=== PATIENT | female | born 1965 | race Caucasian/White ===

== ENCOUNTER 2017-01-01 20:18 | Inpatient (IN) | payer MEDICARE ==
[2017-01-01] MEDS ORDERED: NORMAL SALINE 1000 ML 1,000 ML IV ONE (20:25)
[2017-01-01] MEDS ORDERED: ONDANSETRON HCL INJ/PF 4 MG/2 ML SDV ONE ×4 (20:27→23:50)
[2017-01-01] MEDS ORDERED: NALOXONE HCL INJ/PF 0.4 MG/1 ML SDV ONE ×6 (20:27→22:14)
--- NOTE | 2017-01-01 20:47 | ER Document Report ---
ED General - General Chief Complaint: Possible Overdose Stated Complaint: ABDOMINAL PAIN/VOMITING Time Seen by Provider: 01/01/17 20:24 Cannot obtain history due to: Altered mental status Notes: Patient is a 51-year-old female visiting from [place] who presents after having decreased mental status for the past 12-24 hours. History is extremely limited as patient is somnolent and unstable at time of assessment. The relates that patient normally takes up to 300 mg of tramadol daily and took a her normal dose this morning. He states during the ride she seemed somewhat tired but was able to get out during stops without difficulty. However, shortly after arriving to the family's house here in [facility] the patient had difficulty getting into the house and appeared extremely tired. She slept in a recliner for the majority of the day and family became increasingly concerned when she was not improving. This subsequently brought her here to the emergency department for further assessment. No history of similar symptoms in the past. Patient does have a history of chronic back pain, hypertension, CHF. She does require oxygen at baseline secondary COPD. Denies any history of similar symptoms in the past and denies any concern for illicit substance abuse. - Related Data Allergies/Adverse Reactions: promethazine [From Phenergan] Allergy (Verified 01/01/17 23:00) Home Medications: Current Home Medications Atorvastatin Calcium 1 tab PO QHS 01/01/17 [History] Baclofen [Baclofen 20 Mg Tablet] 1 tab PO TID 01/01/17 [History] Bumetanide 1 tab PO BID 01/01/17 [History] Clopidogrel Bisulfate [Clopidogrel] 1 tab PO DAILY 01/01/17 [History] Escitalopram Oxalate [Escitalopram Oxalate] 1 tab PO DAILY 01/01/17 [History] Fenofibrate [Fenofibrate] 1 tab PO DAILY 01/01/17 [History] Metformin HCl 1 tab PO BID 01/01/17 [History] Metoprolol Tartrate [Metoprolol Tartrate] 1 tab PO DAILY 01/01/17 [History] Oxybutynin Chloride [Oxybutynin Chloride] 1 tab PO BID 01/01/17 [History] Ranitidine HCl [Ranitidine HCl] 1 tab PO BID 01/01/17 [History] Sennosides/Docusate Sodium [Docusate Sodium-Senna Tablet] 1 each PO DAILY [History] Tramadol HCl 2 tab PO QID 01/01/17 [History] Warfarin Sodium [Warfarin Sodium] 1 tab PO DAILY 01/01/17 [History] Past Medical History - General Information source: Relative Cannot obtain history due to: Intoxicated, Altered mental status - Social History Smoking Status: Unknown if Ever Smoked Lives with: Family Family History: Reviewed & Not Pertinent Review of Systems - Review of Systems -: Yes ROS unobtainable due to patient's medical condition Physical Exam - Vital signs Vitals: Pulse Ox 89 L 01/01/17 20:26 Interpretation: Hypotensive, Hypoxic Notes: PHYSICAL EXAMINATION: GENERAL: Somnolent, unable to participate in history taking. Requires sternal rub to open eyes. HEAD: Atraumatic, normocephalic. EYES: Pupils are pinpoint but reactive, extraocular movements intact, sclera anicteric, conjunctiva are normal. ENT: nares patent, oropharynx clear without exudates. Moderately dry mucous membranes. NECK: supple without lymphadenopathy LUNGS: Sonorous respirations. Hypoventilation. HEART: Regular rate and rhythm without murmurs ABDOMEN: Soft, nontender, normoactive bowel sounds. No guarding, no rebound. No masses appreciated. EXTREMITIES: no pitting or edema. No cyanosis. NEUROLOGICAL: No focal neurologic deficits. Patient does move all extremities spontaneously. After administration of naloxone she does follow commands in all 4 extremities. PSYCH: Stuporous SKIN: Warm, Dry, normal turgor, no rashes or lesions noted. Course - Re-evaluation Re-evalutation: 01/01/17 20:43 Patient presented obtunded, not protecting her airway, hypotensive and hypoxemic. She had to be pulled from her car by emergency department staff. Immediately upon patient arriving to the emergency department I went to assess her. Her pupils were noted to be pinpoint, she had sonorous respirations, and she was hypotensive. 0.4 mg of naloxone was administered slowly with gradual improvement of the patient's mental status. Her hypertension began to improve at the bedside after administration of the lung zone as well as a 500 cc fluid bolus. I spent extensive time at the bedside with the patient and her family trying to ascertain what exactly she may have taken today as patient is only prescribed tramadol and only took it this morning almost 12 hours ago which would not account for her presentation at this time. Patient shortly after receiving initial dose of 0.4 mg of naloxone again became more somnolent and was again administered an additional 0.4 mg of naloxone again returning to normal mental status. Laboratories will be sent at this time. If patient requires additional doses of naloxone she will require naloxone drip and admission to the ICU. The patient herself still is somewhat altered at this time and unable to clarify for me exactly what she took today. Her medication bottles were reviewed at the bedside and the only sedating medications include tramadol, baclofen. Patient is critically ill at this time due to her potential impending airway compromise and will require frequent reassessments. 01/01/17 21:37 Patient is again obtunded, sonorous respirations. She has again required a re- dose of naloxone at 0.4 mg. She will be started on a naloxone drip at 1 mg/h. She will require admission to the ICU. 01/02/17 02:31 Patient has maintained normal oxygen saturations and blood pressure on continuous naloxone drip. She has been admitted to Dr. Monsalve. - Vital Signs Vital signs: Temp Pulse Resp BP Pulse Ox 98.0 F 17 110/54 L 94 01/02/17 00:35 01/02/17 00:41 01/02/17 00:41 01/02/17 00:41 - Laboratory Result Diagrams: 01/01/17 20:34 01/01/17 20:34 Laboratory results interpreted by me: 01/01/17 01/01/17 01/01/17 20:32 20:34 20:34 MCHC 31.9 L RDW 16.0 H Seg Neutrophils % 80.4 H Carbon Dioxide 21 L BUN 31 H Creatinine 2.38 H Est GFR ( Amer) 26 L Est GFR (Non-Af Amer) 21 L Glucose 175 H POC Glucose 174 H Calcium 10.4 H Direct Bilirubin 0.7 H AST 55 H Creatine Kinase Total Protein 9.0 H Salicylates < 1.0 L Acetaminophen < 10 L 01/01/17 20:34 MCHC RDW Seg Neutrophils % Carbon Dioxide BUN Creatinine Est GFR ( Amer) Est GFR (Non-Af Amer) Glucose POC Glucose Calcium Direct Bilirubin AST Creatine Kinase 141 H Total Protein Salicylates Acetaminophen - Diagnostic Test Radiology reviewed: Image reviewed, Reports reviewed Radiology results interpreted by me: 01/02/17 02:31 CT head: No acute intracranial bleed - EKG Interpretation by Me Additional EKG results interpreted by me: 01/02/17 02:32 Sinus rhythm. Rate 64. No ST elevations or depressions. LVH. QTC is 458 Critical Care Note - Critical Care Note Total time excluding time spent on procedures (mins): 40 Comments: Critical care time spent obtaining history from patient or surrogate, discussions with consultants, development of treatment plan with patient or surrogate, evaluation of patient's response to treatment, examination of patient , ordering and performing treatments and interventions, ordering and review of laboratory studies, re-evaluation of patient's condition, ordering and review of radiographic studies and review of old charts Discharge - Discharge Clinical Impression: Acute kidney injury Narcotic overdose Qualifiers: Encounter type: initial encounter Injury intent: accidental or unintentional Qualified Code(s): T40.601A - Poisoning by unspecified narcotics, accidental ( unintentional), initial encounter Mental status alteration Qualifiers: Altered mental status type: somnolence Qualified Code(s): R40.0 - Somnolence Hypotension Qualifiers: Hypotension type: unspecified hypotension type Qualified Code(s): I95.9 - Hypotension, unspecified Condition: Critical Disposition: ADMITTED INPATIENT Admitting Provider: [place] [facility] Unit Admitted: ICU
[2017-01-01 20:51] LABS: ABSOLUTE LYMPHOCYTES (AUTO) 1.3 10^3/uL (0.5-4.7); ABSOLUTE MONOCYTES (AUTO) 0.6 10^3/uL (0.1-1.4); BASOPHILS % (AUTO) 0.2 % (0-2); EOSINOPHILS % (AUTO) 0.3 % (0-6); HEMATOCRIT 42.9 % (36.0-47.0); HEMOGLOBIN 13.7 g/dL (12.0-15.5); HGB HCT DIFFERENCE -1.8; LYMPHOCYTES % (AUTO) 13.3 % (13-45); MEAN CORPUSCULAR HEMOGLOBIN 27.5 pg (27.0-33.4); MEAN CORPUSCULAR HGB CONC 31.9 g/dL (32.0-36.0); MEAN CORPUSCULAR VOLUME 86 fl (80-97); MONOCYTES % (AUTO) 5.8 % (3-13); RED BLOOD COUNT 4.98 10^6/uL (3.72-5.28); SEGMENTED NEUTROPHILS % (AUTO) 80.4 % (42-78)
[2017-01-01 21:06] LABS: ALANINE AMINOTRANSFERASE 49 U/L (9-52); ALCOHOL < 10 mg/dL (NONE DETECTED); ALKALINE PHOSPHATASE 71 U/L (38-126); ANION GAP 18 (5-19); ASPARTATE AMINO TRANSFERASE 55 U/L (14-36); BILIRUBIN,DIRECT 0.7 mg/dL (0.0-0.4); BILIRUBIN,TOTAL 1.1 mg/dL (0.2-1.3); BLOOD UREA NITROGEN 31 mg/dL (7-20); CALCIUM 10.4 mg/dL (8.4-10.2); CARBON DIOXIDE 21 mmol/L (22-30); CHLORIDE 102 mmol/L (98-107); CREATININE RESULT 2.38 mg/dL (0.52-1.25); GLUCOSE 175 mg/dL (75-110); SODIUM 141.4 mmol/L (137-145)
[2017-01-01] MEDS ORDERED: NORMAL SALINE 500 ML with NALOXONE HCL 2 MG IV PRN ×2 (21:36)
--- NOTE | 2017-01-01 21:38 | RADIOLOGY REPORT (SQ) ---
EXAM DESCRIPTION: CT HEAD WITHOUT COMPLETED DATE/TIME: 01/01/2017 9:27 pm REASON FOR STUDY: ams COMPARISON: None. TECHNIQUE: Axial images acquired through the brain without intravenous contrast. Images reviewed wi th bone, brain and subdural windows. Images stored on PACS. All CT scanners at this facility use dose modulation, iterative reconstruction, and/or weight based d osing when appropriate to reduce radiation dose to as low as reasonably achievable (ALARA). [facility]: Dose Right [facility]: CareDose [facility]: Dose Right [facility]: Teradose 4D [facility]: [employer] RADIATION DOSE: 64.61 mGy. LIMITATIONS: None. FINDINGS: VENTRICLES: Prominent. CEREBRUM: No masses. No hemorrhage. No midline shift. Areas of low density in the white matter mos t likely due to chronic micro-vascular ischemic change. No evidence for acute infarction. CEREBELLUM: No masses. No hemorrhage. No alteration of density. No evidence for acute infarction. EXTRAAXIAL SPACES: Mild age-related involutional change. No fluid collections. No masses. ORBITS AND GLOBE: No intra- or extraconal masses. Normal contour of globe without masses. CALVARIUM: No fracture. PARANASAL SINUSES: No fluid or mucosal thickening. SOFT TISSUES: No mass or hematoma. OTHER: Intracranial atherosclerosis. IMPRESSION: MILD CHRONIC CHANGES OF ATROPHY AND MICROVASCULAR ISCHEMIA ALONG WITH INTRACRANIAL ATHER OSCLEROSIS. NO ACUTE PROCESS. TECHNICAL DOCUMENTATION: JOB ID: [id number] Quality ID # [id number]: Final reports with documentation of one or more dose reduction techniques (e.g., Au tomated exposure control, adjustment of the mA and/or kV according to patient size, use of iterative reconstruction technique) 2010 [employer]- All Rights Reserved
[2017-01-01] MEDS ORDERED: MAG HYDROX/AL HYDROX/SIMETH SUSP 30 ML UDCUP PO PRN (22:05)
[2017-01-01] MEDS ORDERED: NORMAL SALINE 1000 ML 500 ML IV ONE (22:10)
[2017-01-01 22:46] LABS: CREATINE KINASE MB 2.46 ng/mL (<4.55)
[2017-01-01 22:47] LABS: TROPONIN I < 0.012 ng/mL
[2017-01-01] MEDS ORDERED: NALOXONE HCL INJ 2 MG/2 ML DISP.SYRIN ONE (23:52)
[2017-01-01] MEDS: NORMAL SALINE 500 ML with NALOXONE HCL 2 MG IV PRN ×2 (23:58)
[2017-01-02 00:17] LABS: APPEARANCE,URINE SLIGHTLY-CLOUDY; BILIRUBIN,URINE NEGATIVE (NEGATIVE); GLUCOSE, URINE NEGATIVE (NEGATIVE); KETONES,URINE NEGATIVE (NEGATIVE); LEUKOCYTE ESTERASE,URINE NEGATIVE (NEGATIVE); NITRITE,URINE NEGATIVE (NEGATIVE); PROTEIN,URINE 30 mg/dL (NEGATIVE); URINE SPECIFIC GRAVITY 1.015; UROBILINOGEN,URINE NEGATIVE mg/dL (<2.0)
[2017-01-02 00:25] LABS: URINE BARBITURATES SCREEN NEGATIVE; URINE METHADONE SCREEN NEGATIVE; URINE OPIATES LOW NEGATIVE; URINE PHENCYCLIDINE SCREEN NEGATIVE
[2017-01-02] MEDS ORDERED: NALOXONE HCL INJ 2 MG/2 ML DISP.SYRIN ONE ×3 (02:10→04:38)
[2017-01-02] MEDS: NORMAL SALINE 500 ML with NALOXONE HCL 2 MG IV PRN ×2 (02:15)
[2017-01-02] MEDS: IPRATROPIUM/ALBUTEROL 0.5-2.5 MG/3 ML AMPUL NEB SCH ×4 (02:28→19:43)
[2017-01-02 02:33] LABS: ABSOLUTE LYMPHOCYTES (AUTO) 0.7 10^3/uL (0.5-4.7); ABSOLUTE MONOCYTES (AUTO) 0.4 10^3/uL (0.1-1.4); ABSOLUTE NEUT (AUTO) 8.6 10^3/uL (1.7-8.2); BASOPHILS % (AUTO) 0.1 % (0-2); HEMATOCRIT 35.8 % (36.0-47.0); HEMOGLOBIN 11.7 g/dL (12.0-15.5); HGB HCT DIFFERENCE -0.7; MEAN CORPUSCULAR HGB CONC 32.7 g/dL (32.0-36.0); MEAN CORPUSCULAR VOLUME 86 fl (80-97); MONOCYTES % (AUTO) 4.6 % (3-13); RED BLOOD COUNT 4.18 10^6/uL (3.72-5.28); RED CELL DISTRIBUTION WIDTH 15.6 % (11.5-14.0); SEGMENTED NEUTROPHILS % (AUTO) 88.3 % (42-78); WHITE BLOOD COUNT 9.7 10^3/uL (4.0-10.5)
[2017-01-02 02:58] LABS: ALANINE AMINOTRANSFERASE 46 U/L (9-52); ALBUMIN 3.8 g/dL (3.5-5.0); ALKALINE PHOSPHATASE 53 U/L (38-126); ANION GAP 10 (5-19); ASPARTATE AMINO TRANSFERASE 37 U/L (14-36); BILIRUBIN,DIRECT 0.5 mg/dL (0.0-0.4); BILIRUBIN,TOTAL 0.8 mg/dL (0.2-1.3); BLOOD UREA NITROGEN 29 mg/dL (7-20); CALCIUM 8.8 mg/dL (8.4-10.2); CARBON DIOXIDE 21 mmol/L (22-30); CHLORIDE 110 mmol/L (98-107); CREATINE KINASE 139 U/L (30-135); CREATININE RESULT 1.53 mg/dL (0.52-1.25); GLUCOSE 137 mg/dL (75-110); POTASSIUM 4.9 mmol/L (3.6-5.0); SODIUM 141.2 mmol/L (137-145)
[2017-01-02 03:08] LABS: CREATINE KINASE MB 3.43 ng/mL (<4.55)
[2017-01-02 03:11] LABS: TROPONIN I < 0.012 ng/mL
--- NOTE | 2017-01-02 03:47 | PDOC H&P ---
History of Present Illness Admission Date/PCP: 01/01/17 22:05 Patient complains of: Altered mental status History of Present Illness: XOCHILT SURESH is a 51 year old female with a past medical history of COPD, chronic kidney disease, coronary artery disease, diabetes, hypertension, chronic anticoagulation and chronic pain. She is accompanied by her and sister who provide history. Patient was driven by her from [place] to [place] to visit family and route she became somnolent though managed to ambulate into the house upon arrival to [place]. She has otherwise been persistently somnolent and difficult to arouse and after approximately 24 hours is brought to the emergency room by family. Upon arrival she is unresponsive with pinpoint pupils and rhonchorous respirations. She receives IV Narcan with a prompt but brief response requiring IV Narcan. Patient's denies previous episode or exceptional Depression. She is prescribed and takes approximately 300 mg of Ultram per day. Excepted to the hospitalist service and admitted to ICU for supportive care. Past Medical History Cardiac Medical History: Reports: Congestive Heart Failure, Myocardial Infarction Pulmonary Medical History: Reports: Chronic Obstructive Pulmonary Disease (COPD) Endocrine Medical History: Reports: Diabetes Mellitus Type 2 Past Surgical History Past Surgical History: Reports: Cardiac Catheterization - stents Social History Information Source: Relative, Emergency Med Personnel Lives with: Family Smoking Status: Unknown if Ever Smoked - Advance Directive Resuscitation Status: Full Code Family History Family History: Reviewed & Not Pertinent Parental Family History Reviewed: No - Unobtainable Children Family History Reviewed: NA - Unobtainable Sibling(s) Family History Reviewed.: NA - Unobtainable Medication/Allergy Home Medications: Atorvastatin Calcium 1 tab PO QHS 01/01/17 Baclofen [Baclofen 20 Mg Tablet] 1 tab PO TID 01/01/17 Bumetanide 1 tab PO BID 01/01/17 Clopidogrel Bisulfate [Clopidogrel] 1 tab PO DAILY 01/01/17 Escitalopram Oxalate [Escitalopram Oxalate] 1 tab PO DAILY 01/01/17 Fenofibrate [Fenofibrate] 1 tab PO DAILY 01/01/17 Metformin HCl 1 tab PO BID 01/01/17 Metoprolol Tartrate [Metoprolol Tartrate] 1 tab PO DAILY 01/01/17 Oxybutynin Chloride [Oxybutynin Chloride] 1 tab PO BID 01/01/17 Ranitidine HCl [Ranitidine HCl] 1 tab PO BID 01/01/17 Sennosides/Docusate Sodium [Docusate Sodium-Senna Tablet] 1 each PO DAILY Tramadol HCl 2 tab PO QID 01/01/17 Warfarin Sodium [Warfarin Sodium] 1 tab PO DAILY 01/01/17 Allergies/Adverse Reactions: promethazine [From Phenergan] Allergy (Verified 01/01/17 23:00) Review of Systems ROS unobtainable: Due to mental status - Sedated Physical Exam Vital Signs: Temp Pulse Resp BP Pulse Ox 98.0 F 63 17 118/68 93 01/02/17 02:54 01/02/17 02:54 01/02/17 02:54 01/02/17 02:54 01/02/17 02:54 General appearance: PRESENT: disheveled, mild distress, well-developed, well- nourished. ABSENT: cooperative Head exam: PRESENT: other - Mild erythema to the left forehead family states her head bumped on the door jam exiting the house Eye exam: PRESENT: other - Pupils dilated, reactive and symmetrical Ear exam: PRESENT: normal external ear exam Mouth exam: PRESENT: moist, tongue midline Neck exam: ABSENT: carotid bruit, JVD, lymphadenopathy, thyromegaly Respiratory exam: PRESENT: clear to auscultation thais, crackles, prolonged expiratory phas. ABSENT: rales, rhonchi, wheezes Cardiovascular exam: PRESENT: RRR. ABSENT: diastolic murmur, rubs, systolic murmur Pulses: PRESENT: normal dorsalis pedis pul Vascular exam: PRESENT: normal capillary refill GI/Abdominal exam: PRESENT: normal bowel sounds, soft. ABSENT: distended, guarding, mass, organolmegaly, rebound, tenderness Rectal exam: PRESENT: deferred Extremities exam: PRESENT: full ROM. ABSENT: calf tenderness, clubbing, pedal edema Neurological exam: PRESENT: altered, CN II-XII grossly intact Skin exam: PRESENT: dry, intact, warm. ABSENT: cyanosis, rash Results Laboratory Results: 01/02/17 02:25 01/02/17 02:25 01/02/17 01/02/17 01/02/17 00:00 02:25 02:25 WBC 9.7 RBC 4.18 Hgb 11.7 L Hct 35.8 L MCV 86 MCH 28.0 MCHC 32.7 RDW 15.6 H Plt Count 121 L Seg Neutrophils % 88.3 H Lymphocytes % 7.0 L Monocytes % 4.6 Eosinophils % 0.0 Basophils % 0.1 Absolute Neutrophils 8.6 H Absolute Lymphocytes 0.7 Absolute Monocytes 0.4 Absolute Eosinophils 0.0 Absolute Basophils 0.0 Sodium 141.2 Potassium 4.9 Chloride 110 H Carbon Dioxide 21 L Anion Gap 10 BUN 29 H Creatinine 1.53 H Est GFR ( Amer) 43 L Est GFR (Non-Af Amer) 36 L Glucose 137 H Calcium 8.8 Total Bilirubin 0.8 AST 37 H ALT 46 Alkaline Phosphatase 53 Total Protein 7.0 Albumin 3.8 Urine Color YELLOW Urine Appearance SLIGHTLY-CLOUDY Urine pH 5.0 Ur Specific [place] 1.015 Urine Protein 30 H Urine Glucose (UA) NEGATIVE Urine Ketones NEGATIVE Urine Blood NEGATIVE Urine Nitrite NEGATIVE Ur Leukocyte Esterase NEGATIVE Urine WBC (Auto) 1 Urine RBC (Auto) 0 01/02/17 01/02/17 02:25 02:25 Creatine Kinase 139 H CK-MB (CK-2) 3.43 Troponin I < 0.012 Impressions: Head CT 01/01/17 21:07 IMPRESSION: MILD CHRONIC CHANGES OF ATROPHY AND MICROVASCULAR ISCHEMIA ALONG WITH INTRACRANIAL ATHEROSCLEROSIS. NO ACUTE PROCESS. Assessment & Plan - Diagnosis (1) Narcotic overdose Qualifiers: Encounter type: initial encounter Injury intent: accidental or unintentional Qualified Code(s): T40.601A - Poisoning by unspecified narcotics, accidental (unintentional), initial encounter Is this a current diagnosis for this admission?: YesPlan: Likely secondary to Ultram, continue supportive measures and ICU setting with IV Narcan (2) Acute kidney injury Is this a current diagnosis for this admission?: YesPlan: Unknown baseline avoid nephrotoxic meds and doses IV fluid challenge reevaluate with chemistry in the a.m. (3) Hypotension Qualifiers: Hypotension type: unspecified hypotension type Qualified Code(s): I95.9 - Hypotension, unspecified Is this a current diagnosis for this admission?: YesPlan: Secondary to opiate overdose, IV fluid challenge and IV Narcan (4) Mental status alteration Qualifiers: Altered mental status type: somnolence Qualified Code(s): R40.0 - Somnolence Is this a current diagnosis for this admission?: YesPlan: Secondary to #1 reevaluate mental status every 4 hours - Time Time Spent: 30 to 50 Minutes - Inpatient Certification Medical Necessity: Need Close Monitoring Due to Risk of Patient Decompensation
[2017-01-02 03:50] LABS: ARTERIAL BLOOD BASE EXCESS -2.8 mmol/L; ARTERIAL BLOOD O2 SATURATION 95.9 % (94-98)
[2017-01-02] MEDS ORDERED: NORMAL SALINE 250 ML with NALOXONE HCL 2 MG IV PRN ×2 (04:35)
[2017-01-02] MEDS: HEPARIN SOD (PORCINE) 5,000 UNIT/ML 1 ML SYRINGE SUBCUT SCH ×2 (05:29→14:26)
[2017-01-02] MEDS ORDERED: NORMAL SALINE 250 ML with NALOXONE HCL 4 MG IV PRN ×2 (06:30)
--- NOTE | 2017-01-02 08:22 | EKG REPORT ---
SEVERITY:- ABNORMAL ECG - [facility] NONSPECIFIC INTRAVENTRICULAR CONDUCTION DELAY PROBABLE LEFT VENTRICULAR HYPERTROPHY INFERIOR INFARCT, OLD LATERAL LEADS ARE ALSO INVOLVED : Confirmed by: Grant Herrera MD 02-Jan-2017 08:21:33
[2017-01-02 09:23] LABS: PROTHROMBIN TIME 27.4 SEC (11.4-15.4)
[2017-01-02 09:24] LABS: PARTIAL THROMBOPLASTIN TIME 48.2 SEC (23.5-35.8)
[2017-01-02 09:37] LABS: CREATINE KINASE MB 3.94 ng/mL (<4.55)
[2017-01-02 09:40] LABS: TROPONIN I < 0.012 ng/mL
[2017-01-02] MEDS ORDERED: SENNOSIDES/DOCUSATE 8.6-50 MG 1 EACH TABLET PO SCH (10:00)
[2017-01-02] MEDS ORDERED: DEXTROSE 50%-WATER 25 GM/50 ML DISP.SYRIN IV PRN ×2 (10:11)
[2017-01-02] MEDS ORDERED: GLUCAGON,HUMAN RECOMB 1 MG INJ IM PRN (10:11)
[2017-01-02] MEDS ORDERED: DEXTROSE 40% GEL 15 GM TUBE PO PRN ×2 (10:11)
[2017-01-02 10:42] LABS: HEMATOCRIT 34.6 % (36.0-47.0); HGB HCT DIFFERENCE -1.6; MEAN CORPUSCULAR HEMOGLOBIN 27.1 pg (27.0-33.4); MEAN CORPUSCULAR HGB CONC 31.8 g/dL (32.0-36.0); MEAN CORPUSCULAR VOLUME 85 fl (80-97); RED BLOOD COUNT 4.06 10^6/uL (3.72-5.28); RED CELL DISTRIBUTION WIDTH 15.6 % (11.5-14.0); WHITE BLOOD COUNT 8.3 10^3/uL (4.0-10.5)
[2017-01-02 10:50] LABS: ARTERIAL BLOOD BASE EXCESS -2.5 mmol/L; ARTERIAL BLOOD O2 SATURATION 87.2 % (94-98)
[2017-01-02] MEDS ORDERED: NICOTINE 14 MG/24 HR PATCH.TD24 TD ONE (11:00)
[2017-01-02 11:31] LABS: PROTHROMBIN TIME 27.1 SEC (11.4-15.4)
--- NOTE | 2017-01-02 12:12 | RADIOLOGY REPORT (SQ) ---
EXAM DESCRIPTION: CT HEAD WITHOUT COMPLETED DATE/TIME: 01/02/2017 11:36 am REASON FOR STUDY: ams, fall on anticoag COMPARISON: 01/01/2017 TECHNIQUE: Axial images acquired through the brain without intravenous contrast. Images reviewed wi th bone, brain and subdural windows. Images stored on PACS. All CT scanners at this facility use dose modulation, iterative reconstruction, and/or weight based d osing when appropriate to reduce radiation dose to as low as reasonably achievable (ALARA). [facility]: Dose Right [facility]: CareDose [facility]: Dose Right [facility]: Teradose 4D [facility]: [employer] RADIATION DOSE: 129.22 mGy. LIMITATIONS: Motion. FINDINGS: VENTRICLES: Prominent. CEREBRUM: No masses. No hemorrhage. No midline shift. Areas of low density in the white matter mos t likely due to chronic micro-vascular ischemic change. No evidence for acute infarction. CEREBELLUM: No masses. No hemorrhage. No alteration of density. No evidence for acute infarction. EXTRAAXIAL SPACES: Mild age-related involutional change. No fluid collections. No masses. ORBITS AND GLOBE: No intra- or extraconal masses. Normal contour of globe without masses. CALVARIUM: No fracture. PARANASAL SINUSES: Fluid left maxillary sinus. SOFT TISSUES: No mass or hematoma. OTHER: No other significant finding. IMPRESSION: MILD CHRONIC CHANGES OF ATROPHY AND MICROVASCULAR ISCHEMIA. NO ACUTE PROCESS. TECHNICAL DOCUMENTATION: JOB ID: [id number] Quality ID # [id number]: Final reports with documentation of one or more dose reduction techniques (e.g., Au tomated exposure control, adjustment of the mA and/or kV according to patient size, use of iterative reconstruction technique) 2010 [employer]- All Rights Reserved
--- NOTE | 2017-01-02 12:14 | RADIOLOGY REPORT (SQ) ---
EXAM DESCRIPTION: KUB/ABDOMEN (SINGLE VIEW) COMPLETED DATE/TIME: 01/02/2017 11:40 am REASON FOR STUDY: abd pain COMPARISON: None. NUMBER OF VIEWS: One view. TECHNIQUE: Supine radiographic image of the abdomen acquired. LIMITATIONS: None. FINDINGS: BOWEL GAS PATTERN: Normal bowel gas pattern. No dilated loops. CALCIFICATIONS: No suspicious calcifications. SOFT TISSUES: No gross mass or suggestion of organomegaly. HARDWARE: [place] catheter overlying urinary bladder. Clips right upper quadrant. BONES: No bone lesions or fracture. OTHER: No other significant finding. IMPRESSION: NO RADIOGRAPHIC EVIDENCE FOR ACUTE ABDOMINAL DISEASE.
[2017-01-02] MEDS: LEVOFLOXACIN 750 MG/D5W RTU 150 ML IV SCH (12:36)
[2017-01-02] MEDS: DOCUSATE SODIUM 100 MG CAPSULE PO SCH ×2 (13:59→18:56)
[2017-01-02] MEDS: METOPROLOL TARTRATE 50 MG TABLET PO SCH (13:59)
[2017-01-02] MEDS: CLOPIDOGREL BISULFATE 75 MG TABLET PO SCH (14:01)
[2017-01-02] MEDS: METHYLPREDNISOLONE INJ 125 MG/2 ML SDV IV SCH ×2 (14:01→21:26)
[2017-01-02] MEDS ORDERED: PROCHLORPERAZINE MALEATE 10 MG TABLET PO PRN (14:43)
--- NOTE | 2017-01-02 16:53 | PDOC PROGRESS REPORT ---
Subjective Progress Note for:: 01/02/17 Subjective:: Patient sister and are at bedside. Patient is beginning to become more arousable and answering questions somewhat appropriately. She does complain of some abdominal discomfort. Full review of systems limited by patient's mentation. Physical Exam Vital Signs: Temp Pulse Resp BP Pulse Ox 97.7 F 71 21 H 123/70 98 01/02/17 14:00 01/02/17 14:00 01/02/17 14:39 01/02/17 14:39 01/02/17 14:39 Intake & Output 01/01/17 01/02/17 01/03/17 06:59 06:59 06:59 Output Total 615 370 Balance -615 -370 Weight 78 kg Exam: General: Lethargic but arousable, no acute respiratory distress HEENT: normocephalic, pupils equal round and reactive to light, oropharynx is dry, pink, no scleral icterus, no conjunctival injection Neck: No JVD, trachea midline Chest: Wheezing bilaterally CV: Regular rate and rhythm, normal S1 and S2; no rub or gallop; +3/6 sm Abdomen: Obese, limiting exam, soft, nontender to palpation, nondistended, active bowel sounds; no rebound, rigidity, or guarding Extremities: No cyanosis or edema; +clubbing Results Laboratory Results: 01/02/17 08:49 01/02/17 02:25 01/02/17 01/02/17 01/02/17 00:00 02:25 02:25 WBC 9.7 RBC 4.18 Hgb 11.7 L Hct 35.8 L MCV 86 MCH 28.0 MCHC 32.7 RDW 15.6 H Plt Count 121 L Seg Neutrophils % 88.3 H Lymphocytes % 7.0 L Monocytes % 4.6 Eosinophils % 0.0 Basophils % 0.1 Absolute Neutrophils 8.6 H Absolute Lymphocytes 0.7 Absolute Monocytes 0.4 Absolute Eosinophils 0.0 Absolute Basophils 0.0 Carbonic Acid HCO3/H2CO3 Ratio ABG pH ABG pCO2 ABG pO2 ABG HCO3 ABG O2 Saturation ABG Base Excess FiO2 Sodium 141.2 Potassium 4.9 Chloride 110 H Carbon Dioxide 21 L Anion Gap 10 BUN 29 H Creatinine 1.53 H Est GFR ( Amer) 43 L Est GFR (Non-Af Amer) 36 L Glucose 137 H Calcium 8.8 Total Bilirubin 0.8 AST 37 H ALT 46 Alkaline Phosphatase 53 Ammonia Total Protein 7.0 Albumin 3.8 Urine Color YELLOW Urine Appearance SLIGHTLY-CLOUDY Urine pH 5.0 Ur Specific Deposit 1.015 Urine Protein 30 H Urine Glucose (UA) NEGATIVE Urine Ketones NEGATIVE Urine Blood NEGATIVE Urine Nitrite NEGATIVE Ur Leukocyte Esterase NEGATIVE Urine WBC (Auto) 1 Urine RBC (Auto) 0 01/02/17 01/02/17 01/02/17 03:37 03:55 08:49 WBC 8.3 RBC 4.06 Hgb 11.0 L Hct 34.6 L MCV 85 MCH 27.1 MCHC 31.8 L RDW 15.6 H Plt Count 112 L Seg Neutrophils % Lymphocytes % Monocytes % Eosinophils % Basophils % Absolute Neutrophils Absolute Lymphocytes Absolute Monocytes Absolute Eosinophils Absolute Basophils Carbonic Acid 1.29 HCO3/H2CO3 Ratio 17:1 ABG pH 7.34 L ABG pCO2 42.9 ABG pO2 85.2 ABG HCO3 22.8 ABG O2 Saturation 95.9 ABG Base Excess -2.8 FiO2 4 LITERS Sodium Potassium Chloride Carbon Dioxide Anion Gap BUN Creatinine Est GFR ( Amer) Est GFR (Non-Af Amer) Glucose Calcium Total Bilirubin AST ALT Alkaline Phosphatase Ammonia < 8.7 L Total Protein Albumin Urine Color Urine Appearance Urine pH Ur Specific Deposit Urine Protein Urine Glucose (UA) Urine Ketones Urine Blood Urine Nitrite Ur Leukocyte Esterase Urine WBC (Auto) Urine RBC (Auto) 01/02/17 09:58 WBC RBC Hgb Hct MCV MCH MCHC RDW Plt Count Seg Neutrophils % Lymphocytes % Monocytes % Eosinophils % Basophils % Absolute Neutrophils Absolute Lymphocytes Absolute Monocytes Absolute Eosinophils Absolute Basophils Carbonic Acid 1.25 HCO3/H2CO3 Ratio 18:1 ABG pH 7.36 ABG pCO2 41.6 ABG pO2 54.6 L ABG HCO3 22.8 ABG O2 Saturation 87.2 L ABG Base Excess -2.5 FiO2 2L Sodium Potassium Chloride Carbon Dioxide Anion Gap BUN Creatinine Est GFR ( Amer) Est GFR (Non-Af Amer) Glucose Calcium Total Bilirubin AST ALT Alkaline Phosphatase Ammonia Total Protein Albumin Urine Color Urine Appearance Urine pH Ur Specific Deposit Urine Protein Urine Glucose (UA) Urine Ketones Urine Blood Urine Nitrite Ur Leukocyte Esterase Urine WBC (Auto) Urine RBC (Auto) 01/02/17 01/02/17 01/02/17 02:25 02:25 08:49 Creatine Kinase 139 H 133 CK-MB (CK-2) 3.43 Troponin I < 0.012 01/02/17 08:49 Creatine Kinase CK-MB (CK-2) 3.94 Troponin I < 0.012 Impressions: Head CT 01/02/17 00:00 IMPRESSION: MILD CHRONIC CHANGES OF ATROPHY AND MICROVASCULAR ISCHEMIA. NO ACUTE PROCESS. KUB X-Ray 01/02/17 00:00 IMPRESSION: NO RADIOGRAPHIC EVIDENCE FOR ACUTE ABDOMINAL DISEASE. Assessment & Plan - Diagnosis (1) Acute renal failure Qualifiers: Acute renal failure type: unspecified Qualified Code(s): N17.9 - Acute kidney failure, unspecified Is this a current diagnosis for this admission?: YesPlan: This is likely prerenal. Continue gentle hydration. Continue to monitor improving already. (2) COPD exacerbation Is this a current diagnosis for this admission?: YesPlan: Initiate patient on prednisone and scheduled nebulized treatments and Levaquin (3) Pneumonia Qualifiers: Pneumonia type: due to unspecified organism Laterality: unspecified laterality Lung location: unspecified part of lung Qualified Code(s) : J18.9 - Pneumonia, unspecified organism Is this a current diagnosis for this admission?: YesPlan: Suspect at this time underlying pneumonia although not evident on chest x-ray at this time. Will repeat chest x-ray tomorrow. (4) Chronic systolic (congestive) heart failure Is this a current diagnosis for this admission?: YesPlan: Patient likely has ischemic cardiomyopathy as family reports multiple stents. We will try to obtain records from her [facility] in [facility]. (5) Chronic back pain Qualifiers: Back pain location: low back pain Back pain laterality: unspecified Sciatica presence: unspecified whether sciatica present Qualified Code( s): M54.5 - Low back pain; G89.29 - Other chronic pain Is this a current diagnosis for this admission?: YesPlan: At this time will hold any narcotics or baclofen due to her acute renal failure and altered mentation. (6) Acute encephalopathy Is this a current diagnosis for this admission?: YesPlan: Secondary to sepsis and renal failure and the use of baclofen/tramadol. (7) Chronic respiratory failure with hypoxia Is this a current diagnosis for this admission?: YesPlan: Patient normally uses 2 L of oxygen at home (8) Obesity (BMI 30.0-34.9) Is this a current diagnosis for this admission?: Yes - Time Time Spent with patient: 35 or more minutes Medications reviewed and adjusted accordingly: Yes
--- NOTE | 2017-01-02 18:01 | PSYCHOLOGICAL NOTE ---
Psych Note - Psych Note Psych Note: Patient is a 51-year-old female visiting from [place] who presents after having decreased mental status for the past 12-24 hours. History is extremely limited as patient is somnolent and unstable at time of assessment. The relates that patient normally takes up to 300 mg of tramadol daily and took a her normal dose this morning. He states during the ride she seemed somewhat tired but was able to get out during stops without difficulty. However, shortly after arriving to the family's house here in [facility] the patient had difficulty getting into the house and appeared extremely tired. She slept in a recliner for the majority of the day and family became increasingly concerned when she was not improving. This subsequently brought her here to the emergency department for further assessment. No history of similar symptoms in the past. Patient disclosed that they were driving here from [place]. She she only took 2 tramadol. Patient denies overdose. Patient states they came to [facility] because she passed out. Patient's was at bedside he disclosed that he was with her the entire time, since they were driving, and she did not overdose. He continued disclosed that he knows when they first got here they were concerned that was the case. He disclosed that the attending physician has determined that the patient has not been metabolizing her medications correctly. Resulted in her passing out. Is alert and orientated to person place time and circumstance. Patient mood is euthymic with congruent affect. Patient denies suicidal and homicidal ideation. patient denies auditory and visual hallucinations; no delusions are noted. Thought process is typed and linear. Eye contact was well-maintained. Intellectual abilities appear to be average range. Attention and concentration are good. Insight, judgment, impulse control are good Deferred Impression\plan: Patient is psychologically clear for discharge. Patient appears to have numerous medical complications which states medications. Patient took prescriptions as prescribed which resulted in her passing out; patient suffered from acute renal failure. Patient denies suicidal and homicidal ideation. Patient does not meet IVC criteria per [place] GS 122C. Dr. Tucker was consulted on the care management of this patient; attending physician is in agreement with recommendations and disposition
[2017-01-02] MEDS: INSULIN LISPRO 100 UNIT/ML 3 ML VIAL SUBCUT PRN (18:57)
[2017-01-02] MEDS: WARFARIN SODIUM 5 MG TABLET PO SCH (21:25)
[2017-01-02] MEDS: ATORVASTATIN CALCIUM 80 MG TABLET PO SCH (21:26)
[2017-01-02] MEDS: INSULIN GLARGINE,HUM.REC.ANLOG 300 UNIT/3 ML INSULN.PEN SUBCUT SCH (21:26)
[2017-01-02] MEDS ORDERED: METOPROLOL TARTRATE 50 MG TABLET PO SCH (22:00)
[2017-01-03] MEDS: IPRATROPIUM/ALBUTEROL 0.5-2.5 MG/3 ML AMPUL NEB SCH ×4 (02:34→19:40)
[2017-01-03 05:02] LABS: ABSOLUTE LYMPHOCYTES (AUTO) 0.6 10^3/uL (0.5-4.7); ABSOLUTE MONOCYTES (AUTO) 0.2 10^3/uL (0.1-1.4); ABSOLUTE NEUT (AUTO) 4.5 10^3/uL (1.7-8.2); BASOPHILS % (AUTO) 0.1 % (0-2); HEMATOCRIT 32.8 % (36.0-47.0); HEMOGLOBIN 10.6 g/dL (12.0-15.5); LYMPHOCYTES % (AUTO) 10.8 % (13-45); MEAN CORPUSCULAR HEMOGLOBIN 27.5 pg (27.0-33.4); MEAN CORPUSCULAR HGB CONC 32.2 g/dL (32.0-36.0); MEAN CORPUSCULAR VOLUME 86 fl (80-97); MONOCYTES % (AUTO) 4.5 % (3-13); RED BLOOD COUNT 3.84 10^6/uL (3.72-5.28); RED CELL DISTRIBUTION WIDTH 15.8 % (11.5-14.0); SEGMENTED NEUTROPHILS % (AUTO) 84.6 % (42-78); WHITE BLOOD COUNT 5.3 10^3/uL (4.0-10.5)
[2017-01-03] MEDS: METHYLPREDNISOLONE INJ 125 MG/2 ML SDV IV SCH ×2 (05:08→13:35)
[2017-01-03 05:12] LABS: PROTHROMBIN TIME 25.6 SEC (11.4-15.4)
[2017-01-03 08:53] LABS: ANION GAP 11 (5-19); BLOOD UREA NITROGEN 19 mg/dL (7-20); CALCIUM 8.9 mg/dL (8.4-10.2); CARBON DIOXIDE 22 mmol/L (22-30); CHLORIDE 108 mmol/L (98-107); CREATININE RESULT 0.75 mg/dL (0.52-1.25); GLUCOSE 154 mg/dL (75-110); POTASSIUM 4.4 mmol/L (3.6-5.0); SODIUM 140.6 mmol/L (137-145)
[2017-01-03] MEDS: TRAMADOL HCL 50 MG TABLET PO PRN ×2 (09:27→17:12)
[2017-01-03] MEDS: METOPROLOL TARTRATE 50 MG TABLET PO SCH (09:28)
[2017-01-03] MEDS: CETIRIZINE 10 MG TABLET PO SCH (09:28)
[2017-01-03] MEDS: LEVOFLOXACIN 750 MG/D5W RTU 150 ML IV SCH (09:29)
[2017-01-03] MEDS: DOCUSATE SODIUM 100 MG CAPSULE PO SCH ×2 (09:29→17:12)
[2017-01-03] MEDS: CLOPIDOGREL BISULFATE 75 MG TABLET PO SCH (09:29)
[2017-01-03] MEDS: SENNOSIDES/DOCUSATE 8.6-50 MG 1 EACH TABLET PO SCH ×2 (09:29→17:12)
[2017-01-03] MEDS: NICOTINE 14 MG/24 HR PATCH.TD24 TD SCH (09:40)
[2017-01-03] MEDS: LIDOCAINE 5% (700 MG) TRANSDERMAL ADH..PATCH TP SCH (09:40)
[2017-01-03] MEDS ORDERED: BACLOFEN 10 MG TABLET PO SCH (10:00)
--- NOTE | 2017-01-03 12:58 | RADIOLOGY REPORT (SQ) ---
EXAM DESCRIPTION: CHEST PA/LAT COMPLETED DATE/TIME: 01/03/2017 12:47 pm REASON FOR STUDY: ?pna COMPARISON: None. NUMBER OF VIEWS: Two views. TECHNIQUE: Frontal and lateral radiographic views of the chest acquired. LIMITATIONS: None. FINDINGS: LUNGS AND PLEURA: No opacities, masses or pneumothorax. No pleural effusion. MEDIASTINUM AND HILAR STRUCTURES: No masses or contour abnormality. HEART AND VASCULAR STRUCTURES: Cardiac enlargement. Vascular congestion. BONES: No acute findings. Sclerotic lesion in the left humeral head, probably an enchondroma. HARDWARE: Defibrillator. Sternotomy wires, coronary bypass markers, prosthetic valve. OTHER: No other significant finding. IMPRESSION: CARDIAC ENLARGEMENT. VASCULAR CONGESTION. TECHNICAL DOCUMENTATION: JOB ID: [id number] [employer]- All Rights Reserved
[2017-01-03] MEDS ORDERED: BUMETANIDE 1 MG TABLET PO ONE (13:15)
[2017-01-03] MEDS ORDERED: OXYBUTYNIN CHLORIDE 5 MG TABLET PO ONE (13:30)
[2017-01-03] MEDS: BACLOFEN 10 MG TABLET PO SCH ×2 (13:34→17:13)
[2017-01-03] MEDS: INSULIN LISPRO 100 UNIT/ML 3 ML VIAL SUBCUT PRN ×3 (13:35→21:54)
[2017-01-03] MEDS: METFORMIN HCL 500 MG TABLET PO SCH (17:12)
[2017-01-03] MEDS: BUMETANIDE 1 MG TABLET PO SCH (17:13)
[2017-01-03] MEDS: INSULIN GLARGINE,HUM.REC.ANLOG 300 UNIT/3 ML INSULN.PEN SUBCUT SCH (21:56)
[2017-01-03] MEDS: METHYLPREDNISOLONE INJ 40 MG/1 ML SDV IV SCH (21:56)
[2017-01-03] MEDS: OXYBUTYNIN CHLORIDE 5 MG TABLET PO SCH (21:56)
[2017-01-03] MEDS: ATORVASTATIN CALCIUM 80 MG TABLET PO SCH (21:57)
[2017-01-03] MEDS: WARFARIN SODIUM 5 MG TABLET PO SCH (21:57)
[2017-01-03] MEDS ORDERED: TRAZODONE HCL 50 MG TABLET PO SCH (22:00)
[2017-01-04] MEDS: IPRATROPIUM/ALBUTEROL 0.5-2.5 MG/3 ML AMPUL NEB SCH ×2 (02:05→08:23)
[2017-01-04] MEDS: METHYLPREDNISOLONE INJ 40 MG/1 ML SDV IV SCH (05:14)
[2017-01-04 06:09] LABS: ANION GAP 12 (5-19); BLOOD UREA NITROGEN 23 mg/dL (7-20); CALCIUM 9.3 mg/dL (8.4-10.2); CARBON DIOXIDE 24 mmol/L (22-30); CHLORIDE 105 mmol/L (98-107); CREATININE RESULT 0.81 mg/dL (0.52-1.25); GLUCOSE 158 mg/dL (75-110); MAGNESIUM 1.6 mg/dL (1.6-2.3); POTASSIUM 4.1 mmol/L (3.6-5.0); SODIUM 140.8 mmol/L (137-145)
[2017-01-04 06:14] LABS: ABSOLUTE MONOCYTES (AUTO) 0.4 10^3/uL (0.1-1.4); ABSOLUTE NEUT (AUTO) 4.4 10^3/uL (1.7-8.2); BASOPHILS % (AUTO) 0.2 % (0-2); EOSINOPHILS % (AUTO) 0.1 % (0-6); HEMATOCRIT 33.2 % (36.0-47.0); HEMOGLOBIN 10.9 g/dL (12.0-15.5); HGB HCT DIFFERENCE -0.5; LYMPHOCYTES % (AUTO) 17.3 % (13-45); MEAN CORPUSCULAR HEMOGLOBIN 27.9 pg (27.0-33.4); MEAN CORPUSCULAR VOLUME 85 fl (80-97); MONOCYTES % (AUTO) 7.6 % (3-13); RED BLOOD COUNT 3.92 10^6/uL (3.72-5.28); RED CELL DISTRIBUTION WIDTH 15.6 % (11.5-14.0); SEGMENTED NEUTROPHILS % (AUTO) 74.8 % (42-78); WHITE BLOOD COUNT 5.8 10^3/uL (4.0-10.5)
[2017-01-04 06:20] LABS: PROTHROMBIN TIME 24.1 SEC (11.4-15.4)
--- NOTE | 2017-01-04 07:24 | PDOC PROGRESS REPORT ---
Subjective Progress Note for:: 01/03/17 Subjective:: Patient reports she is feeling much better. She complains of abdominal pain. Patient denies chest pain, shortness of breath, nausea, vomiting, fever, chills , new onset weakness, diarrhea. Physical Exam Vital Signs: Temp Pulse Resp BP Pulse Ox 98.3 F 75 19 133/75 H 100 01/03/17 08:02 01/03/17 08:02 01/03/17 08:02 01/03/17 08:02 01/03/17 08:02 Intake & Output 01/02/17 01/03/17 01/04/17 06:59 06:59 06:59 Intake Total 3109 Output Total 615 825 Balance -615 2284 Weight 78 kg 80.2 kg Exam: General: A+Ox2.5, (states year is 1916), mild respiratory distress HEENT: normocephalic, pupils equal round and reactive to light, oropharynx is dry, pink, no scleral icterus, no conjunctival injection Neck: + JVD to , trachea midline Chest: Crackles bilateral bases, prolonged expiratory phase, mild tachypnea, mild retractions CV: Regular rate and rhythm, normal S1 and S2; +S4; no rub; +3/6 sm Abdomen: Obese, limiting exam, soft, mildly tender to palpation suprapubic, nondistended, active bowel sounds; no rebound, rigidity, or guarding Extremities: No cyanosis or edema; +clubbing Neuro: Cranial nerves grossly intact without focal deficits. Psych: Normal mood and affect Results Laboratory Results: 01/03/17 04:53 01/03/17 04:53 01/03/17 01/03/17 04:53 04:53 WBC 5.3 RBC 3.84 Hgb 10.6 L Hct 32.8 L MCV 86 MCH 27.5 MCHC 32.2 RDW 15.8 H Plt Count 108 L Seg Neutrophils % 84.6 H Lymphocytes % 10.8 L Monocytes % 4.5 Eosinophils % 0.0 Basophils % 0.1 Absolute Neutrophils 4.5 Absolute Lymphocytes 0.6 Absolute Monocytes 0.2 Absolute Eosinophils 0.0 Absolute Basophils 0.0 Sodium 140.6 Potassium 4.4 Chloride 108 H Carbon Dioxide 22 Anion Gap 11 BUN 19 Creatinine 0.75 Est GFR ( Amer) > 60 Est GFR (Non-Af Amer) > 60 Glucose 154 H Calcium 8.9 01/02/17 01/02/17 01/02/17 02:25 02:25 08:49 Creatine Kinase 139 H 133 CK-MB (CK-2) 3.43 Troponin I < 0.012 01/02/17 08:49 Creatine Kinase CK-MB (CK-2) 3.94 Troponin I < 0.012 Impressions: Head CT 01/02/17 00:00 IMPRESSION: MILD CHRONIC CHANGES OF ATROPHY AND MICROVASCULAR ISCHEMIA. NO ACUTE PROCESS. KUB X-Ray 01/02/17 00:00 IMPRESSION: NO RADIOGRAPHIC EVIDENCE FOR ACUTE ABDOMINAL DISEASE. Assessment & Plan - Diagnosis (1) COPD exacerbation Is this a current diagnosis for this admission?: YesPlan: Decrease Solu-Medrol On scheduled nebulized treatments and Levaquin (2) Acute renal failure Qualifiers: Acute renal failure type: unspecified Qualified Code(s): N17.9 - Acute kidney failure, unspecified Is this a current diagnosis for this admission?: YesPlan: Resolved secondary to overdiuresis and acute illness. (3) Pneumonia Qualifiers: Pneumonia type: due to unspecified organism Laterality: unspecified laterality Lung location: unspecified part of lung Qualified Code(s) : J18.9 - Pneumonia, unspecified organism Is this a current diagnosis for this admission?: YesPlan: Suspect at this time underlying pneumonia, pending repeat chest x-ray. (4) Chronic systolic (congestive) heart failure Is this a current diagnosis for this admission?: YesPlan: Patient likely has ischemic cardiomyopathy as family reports multiple stents. Unable to obtain outside records. Will not repeat echo unless clinically worsens. Resume bumex Patient on metoprolol. Unable to tolerate EARNEST/ARB. (5) Chronic back pain Qualifiers: Back pain location: low back pain Back pain laterality: unspecified Sciatica presence: unspecified whether sciatica present Qualified Code( s): M54.5 - Low back pain; G89.29 - Other chronic pain Is this a current diagnosis for this admission?: YesPlan: resume low dose tramadol and baclofen (6) Acute encephalopathy Is this a current diagnosis for this admission?: YesPlan: resolved (7) Chronic respiratory failure with hypoxia Is this a current diagnosis for this admission?: YesPlan: Patient normally uses 2 L of oxygen at home (8) Obesity (BMI 30.0-34.9) Is this a current diagnosis for this admission?: Yes - Time Time Spent with patient: 25-34 minutes Medications reviewed and adjusted accordingly: Yes Anticipated discharge: Home Within: within 48 hours
[2017-01-04] MEDS: INSULIN LISPRO 100 UNIT/ML 3 ML VIAL SUBCUT PRN (07:36)
[2017-01-04] MEDS: MAGNESIUM OXIDE 400 MG TABLET PO SCH ×2 (07:37→13:05)
[2017-01-04] MEDS ORDERED: PREDNISONE 20 MG TABLET PO SCH (10:00)
[2017-01-04] MEDS ORDERED: LEVOFLOXACIN 750 MG TABLET PO SCH (10:00)
[2017-01-04] MEDS: BACLOFEN 10 MG TABLET PO SCH ×2 (11:15→13:04)
[2017-01-04] MEDS: CLOPIDOGREL BISULFATE 75 MG TABLET PO SCH (11:16)
[2017-01-04] MEDS: METFORMIN HCL 500 MG TABLET PO SCH (11:16)
[2017-01-04] MEDS: OXYBUTYNIN CHLORIDE 5 MG TABLET PO SCH (11:16)
[2017-01-04] MEDS: CETIRIZINE 10 MG TABLET PO SCH (11:17)
[2017-01-04] MEDS: BUMETANIDE 1 MG TABLET PO SCH (11:18)
[2017-01-04] MEDS: METOPROLOL TARTRATE 50 MG TABLET PO SCH (11:18)
[2017-01-04] MEDS: NICOTINE 14 MG/24 HR PATCH.TD24 TD SCH (11:19)
[2017-01-04] MEDS: SENNOSIDES/DOCUSATE 8.6-50 MG 1 EACH TABLET PO SCH (11:20)
[2017-01-04] MEDS: DOCUSATE SODIUM 100 MG CAPSULE PO SCH (11:20)
[2017-01-04] MEDS: LIDOCAINE 5% (700 MG) TRANSDERMAL ADH..PATCH TP SCH (11:20)
[2017-01-04 12:40] VITALS: BP 134/82
--- NOTE | 2017-01-04 12:57 | PDOC DISCHARGE SUMMARY ---
General - Admit/Disc Date/PCP Admission Date/Primary Care Provider: 01/01/17 22:05 Discharge Date: 01/04/17 - Discharge Diagnosis (1) COPD exacerbation Is this a current diagnosis for this admission?: Yes (2) Acute renal failure Is this a current diagnosis for this admission?: Yes (3) Chronic systolic (congestive) heart failure Is this a current diagnosis for this admission?: Yes (4) Chronic back pain Is this a current diagnosis for this admission?: Yes (5) Acute encephalopathy Is this a current diagnosis for this admission?: Yes (6) Chronic respiratory failure with hypoxia Is this a current diagnosis for this admission?: Yes (7) Obesity (BMI 30.0-34.9) Is this a current diagnosis for this admission?: Yes (8) Acute urinary retention Is this a current diagnosis for this admission?: Yes (9) Tobacco abuse Is this a current diagnosis for this admission?: Yes - Additional Information Resuscitation Status: Full Code Discharge Diet: Cardiac, Diabetic Discharge Activity: Activity As Tolerated, Supervised Activity Home Medications: Atorvastatin Calcium [Lipitor 80 mg Tablet] 80 mg PO QHS 01/02/17 Baclofen [Baclofen 20 mg Tablet] 20 mg PO TID 01/02/17 Bumetanide [Bumex 1 mg Tablet] 1 mg PO Q12 01/02/17 Cetirizine HCl [Zyrtec 10 mg Tablet] 10 mg PO DAILY 01/02/17 Clopidogrel Bisulfate [Plavix 75 mg Tablet] 75 mg PO DAILY 01/02/17 Escitalopram Oxalate [Lexapro] 20 mg PO DAILY 01/02/17 Fenofibrate 54 mg PO DAILY 01/02/17 Insulin Aspart [Novolog Insulin (Aspart) 100 unit/mL] 0 unit SUBCUT .SLD SCALE 01/02/17 Insulin Glargine,Hum.rec.anlog [Lantus Insulin 100 Unit/mL] 35 unit SUBCUT QHS 01/02/17 Metformin HCl [Glucophage] 500 mg PO BID 01/02/17 Metoprolol Tartrate [Lopressor 50 mg Tablet] 50 mg PO DAILY 01/02/17 Oxybutynin Chloride [Ditropan 5 mg Tablet] 5 mg PO Q12 01/02/17 Promethazine HCl [Phenergan 25 mg Tablet] 25 mg PO QIDP PRN 01/02/17 Ramipril [Altace 2.5 mg Capsule] 2.5 mg PO DAILY 01/02/17 Ranitidine HCl [Zantac] 300 mg PO Q12 01/02/17 Tramadol HCl [Ultram] 100 mg PO QID 01/02/17 Trazodone HCl [Desyrel] 150 mg PO QHS 01/02/17 Warfarin Sodium [Coumadin 5 mg Tablet] 5 mg PO DAILY 01/02/17 Albuterol Sulfate [Proair Respiclick] 90 mcg IH Q4H #1 aer.pow.ba 01/04/17 Atorvastatin Calcium [Lipitor 80 mg Tablet] 80 mg PO QHS tablet 01/04/17 Levofloxacin [Levaquin 750 mg Tablet] 750 mg PO DAILY #8 tablet 01/04/17 Metoprolol Tartrate [Lopressor 50 mg Tablet] 50 mg PO DAILY tablet 01/04/17 Prednisone [Deltasone 20 mg Tablet] 20 mg PO BID #16 tablet 01/04/17 Sennosides/Docusate 8.6-50 mg [Senna Plus Tablet] 1 each PO BID tablet Warfarin Sodium [Coumadin 5 mg Tablet] 5 mg PO QHS tablet 01/04/17 History of Present Illness History of Present Illness: Please see H&P for full HPI Hospital Course Hospital Course: Patient is a 51-year-old female with a history of oxygen dependent COPD, chronic systolic heart failure with pacemaker AICD, chronic back pain who presents to the emergency department after traveling here from [place]. Patient was found to be lethargic and obtunded and responded to Narcan. Upon evaluation of her laboratory studies patient was found to be in acute renal failure. Patient was initially placed on a Narcan drip and placed in the ICU. Patient rapidly improved and her alteration in mentation returned to baseline. Patient was found to have COPD exacerbation and was started on Levaquin and prednisone as well as scheduled nebulized treatments. Patient greatly improved and her home medications were resumed. Patient did have complaints of abdominal pain and was found to have a distended bladder with 900 mL of urine. Subsequent postvoid residuals have been less than 250 mL. I did offer a Ow[place]u catheter in order for transfer home, but this was declined by patient. I did express to patient my concern about her urinary retention which could result in loss of function of her bladder, renal failure, or organ rupture. Patient verbalized understanding and reported that she would follow-up with her primary care physician. Patient reported she felt well and was requesting discharge. Patient was advised for any worsening symptoms to stop at the nearest emergency department and to see her physician immediately upon returning home. Physical Exam Vital Signs: Temp Pulse Resp BP Pulse Ox 98.6 F 64 19 125/55 L 94 01/04/17 12:25 01/04/17 12:25 01/04/17 12:25 01/04/17 12:25 01/04/17 12:25 Intake & Output 01/03/17 01/04/17 01/05/17 06:59 06:59 06:59 Intake Total 3109 1934 200 Output Total 825 0620 700 Balance 5547 -0528 -046 Weight 80.2 kg 81.2 kg Exam: General: A+Ox3, no acute respiratory distress HEENT: normocephalic, pupils equal round and reactive to light, oropharynx is dry, pink, no scleral icterus, no conjunctival injection Neck: no JVD, trachea midline Chest: Clear to auscultation bilaterally, prolonged expiratory phase CV: Regular rate and rhythm, normal S1 and S2; +S4; no rub; +3/6 sm Abdomen: Obese, limiting exam, soft, nontender to palpation, nondistended, active bowel sounds; no rebound, rigidity, or guarding Extremities: No cyanosis or edema; +clubbing Neuro: Cranial nerves grossly intact without focal deficits. Psych: Normal mood and affect Results Laboratory Results: 01/04/17 05:24 01/04/17 05:24 01/04/17 01/04/17 05:24 05:24 WBC 5.8 RBC 3.92 Hgb 10.9 L Hct 33.2 L MCV 85 MCH 27.9 MCHC 33.0 RDW 15.6 H Plt Count 101 L Seg Neutrophils % 74.8 Lymphocytes % 17.3 Monocytes % 7.6 Eosinophils % 0.1 Basophils % 0.2 Absolute Neutrophils 4.4 Absolute Lymphocytes 1.0 Absolute Monocytes 0.4 Absolute Eosinophils 0.0 Absolute Basophils 0.0 Sodium 140.8 Potassium 4.1 Chloride 105 Carbon Dioxide 24 Anion Gap 12 BUN 23 H Creatinine 0.81 Est GFR ( Amer) > 60 Est GFR (Non-Af Amer) > 60 Glucose 158 H Calcium 9.3 Magnesium 1.6 01/02/17 01/02/17 01/02/17 02:25 02:25 08:49 Creatine Kinase 139 H 133 CK-MB (CK-2) 3.43 Troponin I < 0.012 01/02/17 08:49 Creatine Kinase CK-MB (CK-2) 3.94 Troponin I < 0.012 Impressions: Head CT 01/02/17 00:00 IMPRESSION: MILD CHRONIC CHANGES OF ATROPHY AND MICROVASCULAR ISCHEMIA. NO ACUTE PROCESS. KUB X-Ray 01/02/17 00:00 IMPRESSION: NO RADIOGRAPHIC EVIDENCE FOR ACUTE ABDOMINAL DISEASE. Chest X-Ray 01/03/17 00:00 IMPRESSION: CARDIAC ENLARGEMENT. VASCULAR CONGESTION. Qualifiers PATEINT BEING DISCHARGED WITH ANY OF THE FOLLOWING DIAGNOSIS?: No Plan Time Spent: Greater than 30 Minutes
== END 2017-01-04 14:15 | disposition home or self-care (01) | DRG 682 ==
LOC: ER 20:18 → EH 22:05 → ICU 01-02 03:23 → 3W 01-03 01:38
PROVIDERS: ADMIT Internal Medicine; ATTEND Internal Medicine
DX: N17.9 Acute kidney failure, unspecified (principal); G93.40 Encephalopathy, unspecified; I50.22 Chronic systolic (congestive) heart failure; J44.1 Chronic obstructive pulmonary disease with (acute) exacerbation; J96.11 Chronic respiratory failure with hypoxia; R40.0 Somnolence; I95.9 Hypotension, unspecified; I11.0 Hypertensive heart disease with heart failure; E11.9 Type 2 diabetes mellitus without complications; R33.9 Retention of urine, unspecified; M54.9 Dorsalgia, unspecified; T40.4X5A Adverse effect of other synthetic narcotics, initial encounter; Y92.018 Other place in single-family (private) house as the place of occurrence of the external cause; Z99.81 Dependence on supplemental oxygen; Z95.0 Presence of cardiac pacemaker; Z79.01 Long term (current) use of anticoagulants; Z79.84 Long term (current) use of oral hypoglycemic drugs; Z79.899 Other long term (current) drug therapy
CPT/HCPCS: 36415; 70450; 71020; 74000; 80048; 80053; 80307; 81001; 82140; 82550; 82553; 82803; 82962; 83735; 84484; 85025; 85027; 85610; 85730; 87040; 93005; 93010; 94640; 96361; 96374; 96375; 96376; 99285; G8978-GP; G8979-GP; J1644; J1815; J1956; J2310; J2405; J2920; J2930; J3490; J7030; J7040; J7050; J7512; J7620; S0183